=== PATIENT | male | born 1975 | race Two or more races ===

== ENCOUNTER → 2024-01-01 | Day surgery (SDC) | payer OTHER ==
[~2024-01-01] MED LIST: BUPIVACAINE HCL/PF 0.5% 30ML ML ONE; BUPIVACAINE HCL/PF 0.5% 5MG/ML VIAL IJ ONE; CEFTRIAXONE SODIUM 2,000 MG VIAL IV ONE; CEFTRIAXONE SODIUM 2,000 MG VIAL ONE; CELEBREX200MG PO; COLACE100 MG PO; ENOXAPARIN SODIUM 40 MG/0.4 ML SYRINGE SUBCUTANEO ONE; METRONIDAZOLE/SODIUM CHLORIDE 500 MG/100 ML PIGGYBACK IV ONE; NEURONTIN300 MG PO; PERCOCET 5-3251 EACH PO; SYNTHROID75 MCG PO
== END | disposition home or self-care (01) ==
LOC: ADM 12-25 10:30 → CIR.AMB 06:00
PROVIDERS: ATTEND Surgery
DX: K42.9 Umbilical hernia without obstruction or gangrene (principal); M62.08 Separation of muscle (nontraumatic), other site; Z20.822 Contact with and (suspected) exposure to COVID-19
CPT/HCPCS: 49594; C1781